=== PATIENT | male | born 1975 | race Caucasian/White ===

== ENCOUNTER 2018-12-07 05:55 | Day surgery (SDC) | payer MEDICAID ==
[~2018-12-07] VITALS: Ht 175.3 cm; Wt 136.1 kg
[~2018-12-07 05:55] MED LIST: ALBUTEROL SULF8.5 GM INH; BUTALB-APAP-CA1 EACH PO; HYDROCODON-ACE1 EAC2 PO; NEURONTIN 300300 MG PO; TOPAMAX50 MG PO; [UNRECOGNIZED DRUG - OTHER] PO
[2018-12-07 06:13] LABS: BASOPHILS 0.4 % (0-2); EOSINOPHILS 5.7 % (0-7); HEMATOCRIT 46.8 % (42.0-54.0); HEMOGLOBIN 15.5 g/dL (13.5-17.5); IMMATURE GRANULOCYTES 0.3 % (0-5); MCH 29.5 pg (26.0-34.0); MCHC 33.1 g/dL (31.0-37.0); MEAN PLATELET VOLUME 11.1 fL (7.4-10.4); NEUTROPHILS 63.6 % (40-80); RBC 5.26 10x6/uL (4.20-6.10); RDW 13.7 % (11.5-14.5); WBC 7.8 10x3/uL (4.8-10.8)
[2018-12-07 06:14] LABS: PLATELET COUNT 193 10x3/uL (130-400)
[2018-12-07 06:33] LABS: CALC OSMOLALITY 277 mosm/kg (275-300); CALCIUM 8.8 mg/dL (8.5-10.1); CARBON DIOXIDE 27.3 mmol/L (21.0-32.0); CHLORIDE - SERUM 103 mmol/L (98-107); CREATININE - SERUM 1.1 mg/dL (0.6-1.3); GLUCOSE 120 mg/dL (74-106); POTASSIUM - SERUM 4.3 mmol/L (3.5-5.1); SODIUM 139 mmol/L (136-145); UREA NITROGEN 10 mg/dL (7-18); eGFR NON AFRICAN AMERICAN 77 mL/min (90-120)
[2018-12-07 07:22] VITALS: BP 127/79; Ht 175.3 cm; Wt 136.1 kg
[2018-12-07] MEDS ORDERED: HYDROCODON-ACE1 EA10 PO (08:48)
--- NOTE | 2018-12-07 16:09 | OP ---
PATIENT NAME: NOE TAN MEDICAL RECORD: [id number] :73 LOCATION:D.OPS ADMISSION DATE: SURGEON: CARO NAVA MD DATE OF OPERATION: 12/07/2018 PREOPERATIVE DIAGNOSES: 1. Recurrent ventral hernia. 2. Chronic obstructive pulmonary disease. 3. Morbid obesity with a BMI of 46. 4. Tobacco dependence syndrome. POSTOPERATIVE DIAGNOSES: 1. Recurrent ventral hernia. 2. Chronic obstructive pulmonary disease. 3. Morbid obesity with a BMI of 46. 4. Tobacco dependence syndrome. PROCEDURE: Recurrent ventral hernia repair. SURGEON: Caro Nava MD REPORT OF PROCEDURE: The patient's abdomen was prepped and draped in sterile fashion. A cutdown was made in a semicircular fashion just below the umbilicus. Electrocautery was used to dissect through the subcutaneous tissues. We encountered a hernia defect and hernia sac. This hernia sac was transected using electrocautery and we were able to see this was a fat-containing hernia with omentum. We pushed the omentum back into the abdominal cavity. The hernia sac was excised down to the fascial edges. The hernia defect was a little over 1 cm in greatest diameter. We freed up the fascial edges above and below, and then reapproximated the fascia transversely using interrupted 0 Prolenes times 4. The wound was then irrigated out with normal saline and care was taken to assure there was no sign of any bleeding. The umbilicus and subcutaneous tissues were tacked down using interrupted 3-0 Vicryls and the skin was closed with running subcutaneous 5-0 Monocryl. A total of 10 mL of 0.25% Marcaine plain was infused into the surrounding tissues and the wound was dressed appropriately. COMPLICATIONS: None. CONDITION: Stable. ANESTHESIA: General endotracheal and local. BLOOD LOSS: Minimal. TRANSINT:[id number] Voice Confirmation ID: [id number] DOCUMENT ID: [id number] OPERATIVE REPORT [id number] NOE TAN CHRISTIAN MD at 1609 CC: TISH ROSALES [id number] DICTATION DATE: 12/07/18 0852 BALLOON ARTIST: 12/07/18 [address] [place] [address]
== END 2018-12-07 11:00 | disposition home or self-care (01) ==
LOC: D.OPS 05:55 → D.PAN 08:00 → D.OPS 08:00
PROVIDERS: ATTEND Surgery
DX: K43.2 Incisional hernia without obstruction or gangrene (principal); J44.9 Chronic obstructive pulmonary disease, unspecified; E66.01 Morbid (severe) obesity due to excess calories; Z68.42 Body mass index [BMI] 45.0-49.9, adult; F17.200 Nicotine dependence, unspecified, uncomplicated; Z01.812 Encounter for preprocedural laboratory examination

== ENCOUNTER 2019-02-25 08:05 | Inpatient (IN) | payer MEDICAID ==
[~2019-02-25] VITALS: Ht 175.3 cm; Wt 143.4 kg
--- NOTE | ~2019-02-25 | HEMODYNAMI ---
PATIENT:NOE TAN MEDICAL RECORD: [id number] : 73 [facility] AD[facility]ION DATE: 02/25/19 Generatedon:02/27/201911:58 Patient name: NOE TAN Patient #: [id number] SSN: : 1975 Date of study: 02/27/2019 Page: Of Hemodynamic Procedure Report Patient Data Patient Demographics Procedure consent was obtained First Name: NOE Gender: Male Last Name: DOMINICK : 1975 Patient #: [id number] Age: 43 year(s) Race: Unknown Additional ID: [id number] Contact details Address: [address] [place] [address] State: [place] City: [facility] Zip code: [address] Admission Admission Data Admission Date: 02/25/2019 Admission Time: 10:12 Room #: D.1207 Procedure Procedure Types Cath Procedure Peripheral Cath Diagnostic Procedure Venography Extremity Left Lower Ext. Venagram Procedure Description Procedure Date Procedure Date: 02/27/2019 Procedure Start Time: 10:40 Procedure Staff Name Function Charlie Hernandez MD Performing Physician Miguel Richards RT Monitor Nanda Ramirez RT Scrub Angelina Membreno RN Nurse Jaspal Vera CRNA Additional personnel Procedure Data Cath Procedure Fluoroscopy Diagnostic fluoroscopy Total fluoroscopy Time: 7.5 time: 7.5 min min Diagnostic fluoroscopy Total fluoroscopy dose: 357 dose: 357 mGy mGy Contrast Material Contrast Material Type Amount (ml) Isovue 300 100 Procedure Medications Medication Administration Route Dosage Heparin Flush Bag added to field 3 bags (1000units/500ml NS) Lidocaine 1% added to field 20 Heparin Bolus 3000 units Hemodynamics Rest Heart Rate: 81 (bpm) Snapshots Pre Cath Intra NCS Post Cath Vital Signs Time Heart Resp SPO2 etCO2 NIBP (mmHg) Rhythm Pain Sedation Rate (ipm) (%) (mmHg) Status Level (bpm) 10:27:06 72 24 100 30 156/70(101) NSR 0 (11) 10(A) , No pain 10:35:42 82 15 98 159/69(95) NSR 0 (11) 10(A) , No pain 10:38:13 89 14 96 24.8 173/71(102) NSR 0 (11) 10(A) , No pain 10:40:45 85 16 99 12.7 162/71(102) NSR 0 (11) 10(A) , No pain 10:43:17 88 15 99 15.7 161/68(92) NSR 0 (11) 10(A) , No pain 10:45:48 87 15 99 21 158/67(95) NSR 0 (11) 10(A) , No pain 10:48:18 89 17 99 27.8 157/68(100) NSR 0 (11) 10(A) , No pain 10:50:45 88 15 99 40.6 156/66(112) NSR 0 (11) 10(A) , No pain 10:53:17 89 17 99 26.2 164/67(105) NSR 0 (11) 10(A) , No pain 10:56:15 100 17 42 Measuring NSR 0 (11) 10(A) , No pain 10:56:54 92 22 99 39 138/67(109) NSR 0 (11) 10(A) , No pain 10:59:19 89 17 99 42 152/62(92) NSR 0 (11) 10(A) , No pain 11:01:49 89 17 99 43.6 152/67(95) NSR 0 (11) 10(A) , No pain 11:04:16 92 28 99 37.5 114/80(84) NSR 0 (11) 10(A) , No pain 11:07:14 87 17 99 42 Measuring NSR 0 (11) 10(A) , No pain 11:07:25 85 17 98 39 137/61(94) NSR 0 (11) 10(A) , No pain 11:09:50 89 17 98 41.3 149/60(90) NSR 0 (11) 10(A) , No pain 11:12:15 87 16 99 43.5 160/66(102) NSR 0 (11) 10(A) , No pain 11:14:43 86 16 99 42.8 145/66(89) NSR 0 (11) 10(A) , No pain 11:17:08 87 17 99 42.8 162/65(92) NSR 0 (11) 10(A) , No pain 11:19:36 85 15 99 44.3 159/69(92) NSR 0 (11) 10(A) , No pain 11:22:01 86 14 99 36.8 159/70(95) NSR 0 (11) 10(A) , No pain 11:24:33 86 15 99 45.1 165/70(102) NSR 0 (11) 10(A) , No pain 11:26:52 88 15 99 42.8 157/74(107) NSR 0 (11) 10(A) , No pain 11:29:17 88 20 100 48.1 159/69(102) NSR 0 (11) 10(A) , No pain 11:31:47 91 15 100 55.6 159/66(102) NSR 0 (11) 10(A) , No pain 11:34:10 93 15 100 56.4 160/70(99) NSR 0 (11) 10(A) , No pain 11:36:36 87 15 100 45.8 150/64(91) NSR 0 (11) 10(A) , No pain 11:39:05 87 18 100 42.8 148/71(101) NSR 0 (11) 10(A) , No pain 11:41:31 91 19 99 38.3 150/73(102) NSR 0 (11) 10(A) , No pain 11:43:52 90 24 100 33.8 146/73(104) NSR 0 (11) 10(A) , No pain 11:46:13 88 23 99 34.5 159/81(111) NSR 0 (11) 10(A) , No pain 11:48:41 0 163/75(104) NSR 0 (11) 10(A) , No pain 11:51:06 0 168/75(115) NSR 0 (11) 10(A) , No pain 11:53:34 0 156/77(110) NSR 0 (11) 10(A) , No pain 11:55:35 0 No Cuff NSR 0 (11) 10(A) , No pain 11:57:36 0 No Cuff NSR 0 (11) 10(A) , No pain Medications Time Medication Route Dose Verified Delivered Reason Notes Effe ctiveness by by 10:19:34 Heparin Flush added 3 Charlie Guerra used for Bag to bags Hernandez Hernandez procedure (1000units/500ml field MD JUAREZ NS) 10:19:47 Lidocaine 1% added 20ml Charlie Guerra for local to vial Hernandez Hernandez anesthetic field MD JUAREZ 11:27:00 Heparin Bolus ia 3000 Charlie Guerra units David Hernandez MD, MD Procedure Log Time Note 10:05:12 Jaspal Vera CRNA present and monitoring patient for TIVA. 10:05:28 Miguel Susie RT (R) (CV) sent for patient. Start room use. 10:05:30 Time tracking: Regular hours (M-F 7:00 - 5:00) 10:05:34 Plan of Care:Hemodynamics will remain stable., Cardiac rhythm will remain stable., Comfort level will be maintained., Respiratory function will remain adequate., Patient/ family verbilizes understanding of procedure., Procedure tolerated without complication., Recovers from procedure without complications.. 10:05:42 Patient received from Other to IR Alert and oriented. Tansferred to table in Prone position. 10:05:44 Signed procedure consent form obtained from patient. 10:05:45 Warm blankets applied, and danii hugger turned on for patient comfort. 10:05:46 Correct patient and procedure confirmed by team. 10:05:50 ECG and BP/O2 sat monitors applied to patient. 10:05:52 Full Disclosure recording started 10:05:52 - 10:06:10 SEE ANESTHESIA FOR PRE PROCEDURE ANESTHESIA 10:06:12 Pre-procedure instructions explained to patient. 10:06:13 Pre-op teaching completed and patient verbalized understanding. 10:06:15 Family in waiting room. 10:06:24 Use device set IR Diagnostic 10:06:26 Sterile Angiographic Pack opened to sterile field. 10:06:26 Tegaderm 4 x 4 (1752W) opened to sterile field. 10:06:27 Bag Decanter (2002S) opened to sterile field. 10:06:49 LEFT Popliteal region area was prepped with chlora-prep and draped in sterile fashion 10:07:14 Alarms reviewed by R. N. 10:07:15 Sharps counted by scrub and verified by R.N. 10:19:34 Heparin Flush Bag (1000units/500ml NS) 3 bags added to field was administered by Charlie Hernandez MD; used for procedure; 10:19:47 Lidocaine 1% 20ml vial added to field was administered by Charlie Hernandez MD; for local anesthetic; 10:34:21 Baseline sample Acquired. 10:34:21 Vital chart was started 10:38:12 Physician arrived 10:38:12 --------ALL STOP TIME OUT------ 10:38:13 Final Timeout: patient, procedure, and site verified with staff and physician. All members of the team are in agreement. 10:38:18 Popliteal region site verified by team. 10:38:22 Fire Safety Assessment: A--An alcohol-based skin anteseptic being used preoperatively., C--Open oxygen or nitrous oxide is being used. 10:38:27 Sedation plan: TIVA Medication:Propofol 10:40:21 2) 60-89 Mildly reduced kidney function, and other findings (as for stage 1) point to kidney disease. 10:40:27 Procedure started. 10:40:42 Local anesthetic to Left Knee with Lidocaine 1% by Charlie Hernandez MD.INITIAL ACCESS ONLY 10:41:04 DOC .035 wire (U05668) opened to sterile field. 10:41:04 PERCUTANEOUS ENTRY 19GA needle opened to sterile field. 10:41:05 SHEATH 5FR [place] (IQC868) opened to sterile field. 10:41:06 Micropuncture VSI 4FR kit opened to sterile field. 10:42:45 IV Extension Set opened to sterile field. 10:51:25 Micropuncture VSI 4FR kit opened to sterile field. 11:00:36 GLIDE WIRE ANGLE 260cm (DF6886) opened to sterile field. 11:07:38 GLIDE CATHETER 4FR Straight 65cm (CG412) opened to sterile field. 11:07:45 TORQUE DEVICE PLASTIC .038 ( TD01) opened to sterile field. 11:10:30 INFUSION CATHETER 50cm AraceliJolie (3815281) opened to sterile field . 11:16:54 SUTURE ETHILON 2-0 BLK MONO FS opened to sterile field. 11:25:17 INFUSION CATHETER 30cm Araceli-Jolie (2307947) opened to sterile field . 11:25:18 Tegaderm 6 x 8 (1628) opened to sterile field. 11:25:18 Tegaderm 6 x 8 (1628) opened to sterile field. 11:27:00 Heparin Bolus 3000 units ia was administered by Charlie Hernandez MD; ; 11:46:42 Procedure ended.(Physican Out) 11:47:26 Contrast amount:Isovue 300 100ml. 11:47:44 Fluoroscopy time 07.50 minutes. 11:47:48 Fluoroscopy dose: 357 mGy 11:47:48 Flurop Dose total: 357 11:47:52 Sharps counted by scrub and verified by R.N. 11:47:53 Insertion/operative site no bleeding no hematoma. 11:49:15 Post-op/insertion site Left Popliteal dressed using a 4 x 4 and Tegaderm. 11:49:25 Post left popliteal vein:stable 11:49:29 Post procedure instruction explained to patient.Patient verbalizes understanding. 11:49:34 Procedure and supply charges have been captured, reviewed, submitted an d are correct. 11:57:35 SEE ANESTHESIA NOTE FOR POST PROCEDURE ANESTHESIA 11:57:39 Report given to ICU. 11:57:42 Patient transfered to ICU with Bed. 11:58:07 Vital chart was stopped Device Usage Item Name Manufacture Quantity Catalog Hospital Part Current Minim al Lot# / Number Charge Number Stock Stock Serial# Code Sterile Cardinal 1 [id number] 5 Angiographic Health Pack Tegaderm 4 x 4 3M 1 1626W 346922 809041 581867 5 (1626W) Bag Decanter Microtek 1 859762 85989 641655 5 () Medical Inc. DOC .035 wire Cook Medical 1 [id number] 397917 560992 5 (J87430) PERCUTANEOUS Cook Medical 1 [id number] 295828 203796 5 [id number] ENTRY 19GA needle SHEATH 5FR Terumo 1 KIL349 542076 248934 513752 5 [place] (VOC975) Micropuncture VSI VASCULAR 2 7266V 913241 323294 5 VSI 4FR kit SOLUTIONS IV Extension Hospira 1 47744-80 466010 56300 755450 5 [id number] Set GLIDE WIRE Terumo 1 WH3387 733214 121681 384741 5 ANGLE 260cm (TO1830) GLIDE CATHETER Terumo 1 CG412 642305 870724 5 4FR Straight 65cm (CG412) TORQUE DEVICE [place] 1 TD01 505919 085250 086495 5 PLASTIC .038 ( Scientific TD01) INFUSION Medtronic 1 61900-94 351578 575527 5 CATHETER 50cm Cragg-Jolie (5928030) SUTURE ETHILON Ethicon 1 664H 652116 394075 5 2-0 BLK MONO FS INFUSION Medtronic 1 56578-91 735468 927047 5 CATHETER 30cm Cragg-Jolie (1215171) Tegaderm 6 x 8 3M 2 1628 621653 322692 5 (1628) Signature Audit [place] Stage Time Signature Unsigned Intra-Procedure 02/27/2019 Miguel 11:58:03 AM Shuffield RT (R) (CV) Signatures Monitor : Miguel Signature : Jaspreetield RT Date : Time : [address] [place] [address]
--- NOTE | ~2019-02-25 | HEMODYNAMI ---
PATIENT:NOE TAN MEDICAL RECORD: [id number] : 73 LOCATION:[facility] D.2304 ADMISSION DATE: 02/25/19 Generatedon:02/28/201911:54 Patient name: NOE TAN Patient #: [id number] SSN: : 1975 Date of study: 02/28/2019 Page: Of Hemodynamic Procedure Report Patient Data Patient Demographics Procedure consent was obtained First Name: NOE Gender: Male Last Name: DOMINICK : 1975 Patient #: [id number] Age: 43 year(s) Race: Unknown Additional ID: [id number] Contact details Address: [address] [place] [address] State: [place] City: [facility] Zip code: [address] Admission Admission Data Admission Date: 02/25/2019 Admission Time: 10:12 Room #: D.2304 Procedure Procedure Types Cath Procedure Peripheral Cath Diagnostic Procedure Miscellaneous Procedure Description Procedure Date Procedure Date: 02/28/2019 Procedure Start Time: 11:26 Procedure Staff Name Function Gurwinder Patton MD Performing Physician Jewel Hoang MD Additional personnel Miguel Richards RT Monitor Angelina Membreno RN Nurse GINNY LEMUS RT Scrub Procedure Data Cath Procedure Fluoroscopy Diagnostic fluoroscopy Total fluoroscopy Time: 2.2 time: 2.2 min min Diagnostic fluoroscopy Total fluoroscopy dose: 490 dose: 490 mGy mGy Procedure Medications Medication Administration Route Dosage Heparin Flush Bag added to field 3 bags (1000units/500ml NS) Lidocaine 1% added to field 20 Heparin Bolus I.V. 5000 units Hemodynamics Rest Heart Rate: 81 (bpm) Snapshots Pre Cath Intra NCS Post Cath Vital Signs Time Heart Resp SPO2 etCO2 NIBP (mmHg) Rhythm Pain Sedation Rate (ipm) (%) (mmHg) Status Level (bpm) 11:06:54 81 17 97 33.1 148/78(110) NSR 0 (11) 10(A) , No pain 11:11:12 77 19 96 35.4 147/76(109) NSR 0 (11) 10(A) , No pain 11:15:34 89 24 92 36.2 143/73(95) NSR 0 (11) 10(A) , No pain 11:19:55 89 20 99 38.4 147/72(92) NSR 0 (11) 10(A) , No pain 11:24:19 83 26 99 37.6 154/66(100) NSR 0 (11) 10(A) , No pain 11:29:18 76 13 97 21.8 Measuring NSR 0 (11) 10(A) , No pain 11:29:38 72 13 98 21 148/69(97) NSR 0 (11) 10(A) , No pain 11:34:37 81 15 95 0 Measuring NSR 0 (11) 10(A) , No pain 11:35:02 84 18 96 18.1 172/70(112) NSR 0 (11) 10(A) , No pain 11:39:26 85 14 97 24.8 158/74(99) NSR 0 (11) 10(A) , No pain 11:43:50 86 14 98 26.3 160/70(111) NSR 0 (11) 10(A) , No pain 11:48:10 84 15 99 10.5 155/78(102) NSR 0 (11) 10(A) , No pain 11:52:37 83 18 99 18.8 158/72(93) NSR 0 (11) 10(A) , No pain Medications Time Medication Route Dose Verified Delivered Reason Notes Effe ctiveness by by 11:32:56 Heparin Flush added 3 Gurwinder Purdy used for Bag to bags Pooja Patton procedure (1000units/500ml field MD JUAREZ NS) 11:33:42 Lidocaine 1% added 20ml Gurwinder Purdy for local to vial Pooja Patton anesthetic field MD JUAREZ 11:35:55 Heparin Bolus I.V. 5000 Gurwinder Alfaro Per units Pooja Membreno RN physician Procedure Log Time Note 10:57:31 Miguel Richards RT (R) (CV) sent for patient. Start room use. 10:57:46 Jewel Hoang MD present and monitoring patient for TIVA. 10:57:54 Time tracking: Regular hours (M-F 7:00 - 5:00) 10:57:59 Plan of Care:Hemodynamics will remain stable., Cardiac rhythm will remain stable., Comfort level will be maintained., Respiratory function will remain adequate., Patient/ family verbilizes understanding of procedure., Procedure tolerated without complication., Recovers from procedure without complications.. 10:58:03 Use device set IR Diagnostic 10:58:05 Sterile Angiographic Pack opened to sterile field. 10:58:05 Bag Decanter (2002S) opened to sterile field. 10:58:06 Tegaderm 4 x 4 (1626W) opened to sterile field. 10:58:15 Patient received from ICU to IR Alert and oriented. Tansferred to table in Prone position. 10:58:17 Signed procedure consent form obtained from patient. 10:58:19 Correct patient and procedure confirmed by team. 10:58:21 ECG and BP/O2 sat monitors applied to patient. 10:58:22 Full Disclosure recording started 10:58:23 - 10:58:41 SEE ANESTHESIA NOTE FOR PRE PROCEDURE ANESTHESIA 10:58:43 - 10:58:53 Left Knee was prepped with betadine and draped in sterile fashion. 10:58:55 Alarms reviewed by R. N. 10:58:55 Sharps counted by scrub and verified by R.N. 11:05:35 Vital chart was started 11:06:51 Baseline sample Acquired. 11:20:03 BENTSON 145cm wire (Q25054) opened to sterile field. 11:24:48 Physician arrived 11:24:48 --------ALL STOP TIME OUT------ 11:24:49 Final Timeout: patient, procedure, and site verified with staff and physician. All members of the team are in agreement. 11:24:53 Popliteal region site verified by team. 11:25:07 Fire Safety Assessment: A--An alcohol-based skin anteseptic being used preoperatively., C--Open oxygen or nitrous oxide is being used. 11:25:23 Procedure started. 11:26:45 Local anesthetic to left popliteal vein with Lidocaine 1% by Gurwinder Patton MD.INITIAL ACCESS ONLY 11:27:07 1) 90+ Normal kidney functon but urine findings or structural abnormalities or genetic trait point to kidney disease. 11:31:25 GLIDE CATHETER 5FR ANGLED 65cm (CG507) opened to sterile field. 11:32:56 Heparin Flush Bag (1000units/500ml NS) 3 bags added to field was administered by Gurwinder Patton MD; used for procedure; 11:33:42 Lidocaine 1% 20ml vial added to field was administered by Gurwinder lizama MD; for local anesthetic; 11:34:47 INFLATOR BasixTOUCH (LF6509) opened to sterile field. 11:34:48 SHEATH 6FR [place] (JFB784) opened to sterile field. 11:35:55 Heparin Bolus 5000 units I.V. was administered by Angelina Membreno RN; Per physician; 11:38:51 Inflate balloon Inflation number: 1 A Evercross 10 x 40 x 135 Balloon ([id number]) was prepped and advanced across the Undefined1 , then inflated to 8 LEIDY for 0:03 (min:sec) . 11:45:29 Procedure ended.(Physican Out) 11:46:31 Fluoroscopy time 02.20 minutes. 11:46:36 Fluoroscopy dose: 490 mGy 11:46:36 Flurop Dose total: 490 11:46:39 Sharps counted by scrub and verified by R.N. 11:46:41 Insertion/operative site no bleeding no hematoma. 11:46:47 Post-op/insertion site Left Popliteal dressed using a 4 x 4 and Tegaderm. 11:46:54 Post left popliteal vein:stable 11:50:33 Post procedure instruction explained to patient.Patient verbalizes understanding. 11:50:34 Procedure and supply charges have been captured, reviewed, submitted an d are correct. 11:53:58 Procedure and supply charges have been captured, reviewed, submitted an d are correct. 11:54:00 Report given to ICU. 11:54:03 Patient transfered to ICU with Bed. 11:54:31 Vital chart was stopped Intervention Summary Intervention Notes Time ActionType Lesion and Equipment Used Action# Pressure Duration Attributes 11:38:51 Inflate Undefined1 Evercross 10 x 1 8 00:03 balloon 40 x 135 Balloon ([id number]) Device Usage Item Name Manufacture Quantity Catalog Number Hospital Part Current M inimal Lot# / Charge Number Stock Stock Serial# Code Sterile Cardinal 1 [id number] 785543 5 Angiographic Health Pack Bag Decanter Microtek 1 2001S 275401 30151 631503 5 (2001S) Medical Inc. Tegaderm 4 x 4 3M 1 1626W 378907 194143 748650 5 (1626W) BENTSON 145cm Cook Medical 1 [id number] 821081 571678 5 wire (V77262) GLIDE CATHETER Terumo 1 CG507 572955 507684 5 5FR ANGLED 65cm (CG507) INFLATOR Merit 1 AH2010 611568 269617 767226 5 BasixTOVicampo Medical (XO3854) SHEATH 6FR Terumo 1 KIH436 831399 475770 318161 4 0 [place] (XKM546) Evercross 10 x Medtronic 1 [id number] 616886 157906 147353 5 40 x 135 Balloon ([id number]) Signature Audit [place] Stage Time Signature Unsigned Intra-Procedure 02/28/2019 Miguel 11:54:24 AM Susie RT (R) (CV) Signatures Monitor : Miguel Signature : Susie RT Date : Time : [facility] [address] [place] [id number]
[~2019-02-25 08:05] MED LIST changes: +HYDROCODON-ACE1 EA10 PO
[2019-02-25 08:44] LABS: BASOPHILS 0.2 % (0-2); EOSINOPHILS 1.9 % (0-7); HEMATOCRIT 43.6 % (42.0-54.0); HEMOGLOBIN 14.6 g/dL (13.5-17.5); IMMATURE GRANULOCYTES 0.2 % (0-5); LYMPHOCYTES 18.8 % (15-50); MCHC 33.5 g/dL (31.0-37.0); MCV 89.5 fL (80.0-100.0); MEAN PLATELET VOLUME 11.4 fL (7.4-10.4); NEUTROPHILS 72.9 % (40-80); RBC 4.87 10x6/uL (4.20-6.10); RDW 15.3 % (11.5-14.5); WBC 8.8 10x3/uL (4.8-10.8)
[2019-02-25 08:45] LABS: PLATELET COUNT 131 10x3/uL (130-400)
[2019-02-25 08:51] LABS: INR 1.14 (0.85-1.17); PROTIME 14.1 SECONDS (11.6-15.0)
[2019-02-25 08:59] LABS: ALBUMIN 3.5 g/dL (3.4-5.0); ALKALINE PHOSPHATASE 132 U/L (46-116); ALT (SGPT) 26 U/L (10-68); BILIRUBIN - TOTAL 0.33 mg/dL (0.2-1.3); CALC OSMOLALITY 271 mosm/kg (275-300); CALCIUM 8.5 mg/dL (8.5-10.1); CARBON DIOXIDE 23.7 mmol/L (21.0-32.0); CHLORIDE - SERUM 102 mmol/L (98-107); GLUCOSE 119 mg/dL (74-106); POTASSIUM - SERUM 4.5 mmol/L (3.5-5.1); PROTEIN - SERUM 7.2 g/dL (6.4-8.2); SODIUM 135 mmol/L (136-145); UREA NITROGEN 15 mg/dL (7-18); eGFR NON AFRICAN AMERICAN 86 mL/min (90-120)
[2019-02-25 11:33] VITALS: BMI 44.5
--- NOTE | 2019-02-25 11:50 | NUR ---
NEW PATIENT ADMIT FROM ER. ARRIVED VIA WC ACCOMPANIED BY HOSPITAL STAFF. PATIENT APPEARS IN NO ACUTE DISTRESS. IV TO RT AC SL. NO REDNESS OR EDEMA NOTED. ANGÉLICA LUNG SOUNDS CLEAR. VSS. LLE EDEMATOUS PINK IN COLOR WITH LESS THAN 3 SECOND CAPILLARY REFILL. RLE WNL. PATIENT HAS NO SKIN BREAKDOWN HAS MULTIPLE TATTOOS TO TRUNK AND ALL EXTREMITIES. PATIENT ORIENTED TO ROOM AND CALL LIGHT LIGHT. OFFERED BATH BUT PATIENT REFUSED.
--- NOTE | 2019-02-25 13:40 | NUR ---
PATIENT RESTING COMFORTABLY. GAVE ADDITIONAL CUP OF COFFEE. WILL CONTINUE TO MONITOR.
--- NOTE | 2019-02-25 14:44 | NUR ---
PATIENT COMPLAINS OF PAIN AT AN "8" TO LLE. MEDICATED NPER MAR WITH MORPHONE 4M IV. PATIENT TOLERATED WELL. GAVE PATIENT CUP0 OF COFFEE. WILL CONTINUE TO MONITOR. SR UP X 2 BED IN LOW POSITION AND CALL LIGHT IN REACH.
--- NOTE | 2019-02-25 15:27 | NUR ---
DR ESPARZA IN ROOM. NEW ORDERS RECEIVED.,
[2019-02-25 19:42] VITALS: BP 125/65
--- NOTE | 2019-02-25 19:46 | NUR ---
PATIENT RECEIVED SITTING UP IN BED. ASSESSMENT & VITAL SIGNS DONE. NO C/O PAIN OR DISTRESS. BED LOW. CALL LIGHT WITHIN REACH. WILL CONTINUE TO MONITOR.
--- NOTE | 2019-02-25 21:30 | NUR ---
PATIENT ASSIST INTO SHOWER. PATIENT SHOWER SUPPLIES OUTSIDE OF SHOWER ON CHAIR. PATIENT BED LINENS CHANGED. PATIENT CLEAN DRY, NEW GOWN ON. PATIENT STATES "I FEEL MUCH BETTER. PATIENT ASSIST TO BED. CALL LIGHT WITHIN REACH. WILL CONTINUE TO MONITOR.
[2019-02-25 23:54] VITALS: BP 116/73
[2019-02-26 04:19] VITALS: BP 109/78
[2019-02-26 07:25] LABS: BASOPHILS 0.3 % (0-2); EOSINOPHILS 2.1 % (0-7); HEMATOCRIT 41.5 % (42.0-54.0); HEMOGLOBIN 13.6 g/dL (13.5-17.5); IMMATURE GRANULOCYTES 0.4 % (0-5); LYMPHOCYTES 19.7 % (15-50); MCH 29.4 pg (26.0-34.0); MCHC 32.8 g/dL (31.0-37.0); MCV 89.8 fL (80.0-100.0); MEAN PLATELET VOLUME 12.2 fL (7.4-10.4); MONOCYTES 7.3 % (2-11); NEUTROPHILS 70.2 % (40-80); PLATELET COUNT 141 10x3/uL (130-400); RBC 4.62 10x6/uL (4.20-6.10); RDW 15.2 % (11.5-14.5); WBC 7.7 10x3/uL (4.8-10.8)
[2019-02-26 07:28] LABS: CALC OSMOLALITY 276 mosm/kg (275-300); CALCIUM 8.5 mg/dL (8.5-10.1); CARBON DIOXIDE 24.6 mmol/L (21.0-32.0); CHLORIDE - SERUM 103 mmol/L (98-107); GLUCOSE 133 mg/dL (74-106); SODIUM 137 mmol/L (136-145); UREA NITROGEN 14 mg/dL (7-18); eGFR NON AFRICAN AMERICAN 86 mL/min (90-120)
--- NOTE | 2019-02-26 07:30 | NUR ---
PT RESTING IN BED, SHIFT ASSESSMENT PERFORMED, DENIES ANY FURTHER NEEDS AT THIS TIME. WILL CONT TO FOLLOW POC
[2019-02-26] MEDS ORDERED: VALIUM 2 MG TAB2 MG PO (08:27)
[2019-02-26 08:29] VITALS: BP 102/62
[2019-02-26 11:35] VITALS: BP 129/87
[2019-02-26 14:15] VITALS: BMI 44.4
--- NOTE | 2019-02-26 19:30 | NUR ---
PT ALERT AND ORIENTED WITH HOB UPRIGHT AND ELEVATED. PT HAS LEFT AC IV THAT IS SALINE LOCKED. LEFT LOWER EXTREMETY IS TENDER UPON TOUCH. WARM AND RED TO THE ENTIRE LIMB. STATES "PAIN IS ALWAYS A 9 OR 10". DENIES FURTHER ISSUES. HAS CALL LIGHT IN REACH.
[2019-02-26 20:00] VITALS: BP 115/62
--- NOTE | 2019-02-26 23:19 | NUR ---
I have reviewed this patient and I concur with the Shift Assessment completed by the Licensed Practical Nurse today this shift.
[2019-02-27] VITALS (15 sets, daily range): BP systolic 104–150; BP diastolic 70–103; Ht 175.3 cm; Wt 143.4 kg
[2019-02-27 06:42] LABS: INR 1.15 (0.85-1.17); PROTIME 14.2 SECONDS (11.6-15.0)
[2019-02-27 07:09] LABS: ALBUMIN 3.3 g/dL (3.4-5.0); ALKALINE PHOSPHATASE 126 U/L (46-116); ALT (SGPT) 29 U/L (10-68); BILIRUBIN - TOTAL 0.36 mg/dL (0.2-1.3); CALCIUM 8.5 mg/dL (8.5-10.1); CREATININE - SERUM 1.1 mg/dL (0.6-1.3); GLUCOSE 121 mg/dL (74-106); PROTEIN - SERUM 7.5 g/dL (6.4-8.2); UREA NITROGEN 13 mg/dL (7-18); eGFR NON AFRICAN AMERICAN 77 mL/min (90-120)
--- NOTE | 2019-02-27 07:17 | NUR ---
PT RESTING IN BED, DENIES ANY NEEDS AT THIS TIME, WILL CONT TO FOLLOW POC
[2019-02-27 07:32] LABS: BASOPHILS 0.3 % (0-2); EOSINOPHILS 2.7 % (0-7); HEMOGLOBIN 13.7 g/dL (13.5-17.5); IMMATURE GRANULOCYTES 0.6 % (0-5); LYMPHOCYTES 19.2 % (15-50); MCH 29.2 pg (26.0-34.0); MCHC 32.6 g/dL (31.0-37.0); MCV 89.6 fL (80.0-100.0); MONOCYTES 7.5 % (2-11); NEUTROPHILS 69.7 % (40-80); PLATELET COUNT 143 10x3/uL (130-400); RBC 4.69 10x6/uL (4.20-6.10); WBC 6.9 10x3/uL (4.8-10.8)
[2019-02-27 08:05] LABS: CALC OSMOLALITY 274 mosm/kg (275-300); CHLORIDE - SERUM 100 mmol/L (98-107); POTASSIUM - SERUM 4.2 mmol/L (3.5-5.1); SODIUM 137 mmol/L (136-145)
--- NOTE | 2019-02-27 09:20 | NUR ---
IVR CALLED TO PREOP PT. PT PREOP ORDERED
--- NOTE | 2019-02-27 10:15 | NUR ---
PT LEFT WITH IVR
--- NOTE | 2019-02-27 12:10 | NUR ---
RECEIVED PATIENT FROM IR RECOVERY POST SHEATH INSERTION TO LEFT LEG WITH TPA INFUSING AT 20ML/HR AND HEPARIN INFUSING AT 5ML/HR. LEFT LEG IS SWOLLEN AND RED. PATIENT COMPLAINT OF SEVERE HEAD ACHE PROBABLY FROM KETAMINE WEARING OFF. LABOR ARBITRATOR HEARING OFFICE ADMINISTERED NORCO. GAVE COLD WET RAGS FOR PATIENTS FOREHEAD PER REQUEST. WILL KEEP PATIENT LAYING FLAT TILL SHEAT IS REMOVED. VSS. PATIENT AWAKE ALERT AND ORIENTED.
[2019-02-27 13:11] LABS: HEMATOCRIT 40.2 % (42.0-54.0); HEMOGLOBIN 13.2 g/dL (13.5-17.5); MCH 29.3 pg (26.0-34.0); MCHC 32.8 g/dL (31.0-37.0); MCV 89.1 fL (80.0-100.0); MEAN PLATELET VOLUME 11.3 fL (7.4-10.4); NEUTROPHILS 73.7 % (40-80); PLATELET COUNT 131 10x3/uL (130-400); RBC 4.51 10x6/uL (4.20-6.10); RDW 14.3 % (11.5-14.5); WBC 5.9 10x3/uL (4.8-10.8)
[2019-02-27 13:25] LABS: INR 1.1 (0.85-1.17); PROTIME 13.7 SECONDS (11.6-15.0)
[2019-02-27 13:26] LABS: APTT 36.9 SECONDS (22.8-39.4)
--- NOTE | 2019-02-27 14:00 | NUR ---
PATIENT RESTING IN BED C VSS. NO COMPLAINTS.
--- NOTE | 2019-02-27 17:46 | MORECARE ---
CASE MANAGEMENT DISCHARGE SUMMARY PATIENT: NOE TAN UNIT: [id number] ADM DATE: 02/25/19 AGE: 43 : [birth year] SEX: M ROOM/BED: D.2304 AUTHOR: JOHNNY,DOC PHYSICIAN: REFERRING PHYSICIAN: CHRISTIAN ESPARZA MD DATE OF SERVICE: 02/27/19 Discharge Plan Patient Name: NOE TAN Facility: [facility]:[place] : 1975 Planned Disposition: Home or Self Care Anticipated Discharge Date: Discharge Date: Expected LOS: Initial Reviewer: [email or web address] Initial Review Date: 02/25/2019 Generated: 02/27/19 6:46 pm Comments DCP- Discharge Planning Updated by [email or web address]: Veronika Subramanian on 02/27/19 4:[address] Patient Name: NOE TAN Admission Status: ER Accout number: [id number] Admission Date: 02-25-2019 : 1975 Admission Diagnosis: Attending: CHRISTIAN ESPARZA Current LOS: 2 Anticipated DC Date: Planned Disposition: Home or Self Care Primary Insurance: [place] [employer] EST[employer] Discharge Planning Comments: CM met with patient at bedside after explaining CM role and obtaining verbal consent. Patient lives at home with his family and plans to return there upon discharge. Patient feels this would be a safe discharge. CM discussed availability / needs of home health and medical equipment. Patient denies any discharge needs at this time. Patient states he will have his family drive him home upon discharge. CM will continue to follow and assist as needed with discharge planning / needs. Plumbing And Heating Mechanic: Veronika Subramanian DCPIA - Discharge Planning Initial Assessment Updated by [email or web address]: Veronika Subramanian on 02/27/19 5:42 pm * Is the patient Alert and Oriented? Yes * How many steps to enter\exit or inside your home? * PCP Jasper Salinas APN * [facility] * Preadmission Environment Home with Family * ADLs Independent * List name and contact numbers for known caregivers / representatives who currently or will assist patient after discharge: Carolin Tan - formerly [facility] - [phone] * Verbal permission to speak to the caregivers and representatives has been obtained from the patient. Yes * Community resources currently utilized None * Additional services required to return to the preadmission environment? No * Can the patient safely return to the preadmission environment? Yes * Has this patient been hospitalized within the prior 30 days at any hospital? No Patient Name: NOE TAN Page [id number] at 1746 All edits/amendments must be made on the electronic document DICTATION DATE: 02/27/191744 DECORATOR LIGHTING FIXTURES: DANIEL 02/27/191744 RPT#: [id number] DC DATE: STATUS: ADM IN [facility] [address] [place] [address] END OF REPORT
[2019-02-27 18:14] LABS: BASOPHILS 0.3 % (0-2); EOSINOPHILS 2.3 % (0-7); HEMATOCRIT 43.3 % (42.0-54.0); HEMOGLOBIN 14.1 g/dL (13.5-17.5); IMMATURE GRANULOCYTES 0.7 % (0-5); LYMPHOCYTES 15.8 % (15-50); MCH 29.6 pg (26.0-34.0); MCHC 32.6 g/dL (31.0-37.0); MCV 90.8 fL (80.0-100.0); MEAN PLATELET VOLUME 11.3 fL (7.4-10.4); NEUTROPHILS 73.9 % (40-80); PLATELET COUNT 138 10x3/uL (130-400); RBC 4.77 10x6/uL (4.20-6.10); RDW 14.9 % (11.5-14.5)
[2019-02-27 18:24] LABS: INR 1.08 (0.85-1.17); PROTIME 13.5 SECONDS (11.6-15.0)
[2019-02-27 18:25] LABS: APTT 30.3 SECONDS (22.8-39.4)
--- NOTE | 2019-02-27 19:00 | NUR ---
BEDSIDE REPORT AND SHIFT ASSESSMENT COMPLETE. PT STATES PAIN MEDS ARE STARTING TO WORK, REPORTS PAIN 4/10. L HAND PIV SALINE LOCKED, DRESSING CDI. LLE IR SHEATH DRESSING CDI. LLE PULSES PALP AND DOPPLERED. DENIES NEEDS AT THIS TIME.
--- NOTE | 2019-02-27 21:00 | NUR ---
C/O PAIN 04/10, MEDS GIVEN PER SEP. 100% OF TURKEY SANDWICH EATEN. VSS, WILL CONTINUE TO MONITOR.
--- NOTE | 2019-02-27 21:40 | NUR ---
Patient c/o excrutiating L thigh pain 05/10, spoke to Stanislaw JULIO with new orders received. 1mg Dilaudid IV / 2mg Valium PO to be given now, medications given as ordered and will continue to monitor.
--- NOTE | 2019-02-27 23:00 | NUR ---
REASESSMENT COMPLETE, VSS. LLE SHEATH DRESSING CDI. MEDS GIVEN PER SEP. CALL LIGHT IN REACH, WILL CONTINUE TO MONITOR.
[2019-02-27 23:20] LABS: BASOPHILS 0.2 % (0-2); EOSINOPHILS 1.5 % (0-7); HEMATOCRIT 42.8 % (42.0-54.0); HEMOGLOBIN 14.4 g/dL (13.5-17.5); IMMATURE GRANULOCYTES 0.6 % (0-5); MCH 29.9 pg (26.0-34.0); MCHC 33.6 g/dL (31.0-37.0); MEAN PLATELET VOLUME 11.3 fL (7.4-10.4); NEUTROPHILS 81.7 % (40-80); PLATELET COUNT 139 10x3/uL (130-400); RBC 4.82 10x6/uL (4.20-6.10); RDW 14.9 % (11.5-14.5)
[2019-02-27 23:23] LABS: MCV 88.8 fL (80.0-100.0); WBC 9.9 10x3/uL (4.8-10.8)
[2019-02-27 23:32] LABS: APTT 35.5 SECONDS (22.8-39.4); INR 1.17 (0.85-1.17); PROTIME 14.4 SECONDS (11.6-15.0)
[2019-02-28] VITALS (19 sets, daily range): BP systolic 113–151; BP diastolic 73–88
--- NOTE | 2019-02-28 01:00 | NUR ---
PT SLEEPING, VSS, NO SIGNS OF ACUTE DISTRESS. WILL CONTINUE TO MONITOR.
--- NOTE | 2019-02-28 03:00 | NUR ---
REASESSMENT COMPLETE, VSS. PT SLEEPING. O2 SAT 98 ON 2L NC. LLE PULSES DOPPLERED. WILL CONTINUE TO MONITOR.
--- NOTE | 2019-02-28 05:00 | NUR ---
CHG BATH, LINEN CHANGE COMPLETE. VSS, NO SIGNS OF ACUTE DISTRESS NOTED. CALL LIGHT IN REACH, DENIES ANY NEEDS AT THIS TIME.
[2019-02-28 06:01] LABS: BASOPHILS 0.3 % (0-2); EOSINOPHILS 1.7 % (0-7); HEMATOCRIT 41.5 % (42.0-54.0); HEMOGLOBIN 13.8 g/dL (13.5-17.5); IMMATURE GRANULOCYTES 0.8 % (0-5); LYMPHOCYTES 10.4 % (15-50); MCH 29.6 pg (26.0-34.0); MCHC 33.3 g/dL (31.0-37.0); MCV 88.9 fL (80.0-100.0); MONOCYTES 10.4 % (2-11); NEUTROPHILS 76.4 % (40-80); PLATELET COUNT 119 10x3/uL (130-400); RBC 4.67 10x6/uL (4.20-6.10); RDW 15.1 % (11.5-14.5)
[2019-02-28 06:25] LABS: WBC 7.2 10x3/uL (4.8-10.8)
[2019-02-28 06:36] LABS: ALBUMIN 3.1 g/dL (3.4-5.0); ALKALINE PHOSPHATASE 113 U/L (46-116); ALT (SGPT) 30 U/L (10-68); BILIRUBIN - TOTAL 0.35 mg/dL (0.2-1.3); CALC OSMOLALITY 278 mosm/kg (275-300); CALCIUM 8.4 mg/dL (8.5-10.1); CARBON DIOXIDE 27.1 mmol/L (21.0-32.0); CHLORIDE - SERUM 104 mmol/L (98-107); CREATININE - SERUM 0.9 mg/dL (0.6-1.3); GLUCOSE 134 mg/dL (74-106); POTASSIUM - SERUM 4.4 mmol/L (3.5-5.1); PROTEIN - SERUM 7.1 g/dL (6.4-8.2); SODIUM 139 mmol/L (136-145); UREA NITROGEN 11 mg/dL (7-18); eGFR NON AFRICAN AMERICAN > 90 mL/min (90-120)
[2019-02-28 07:09] LABS: APTT 42.3 SECONDS (22.8-39.4); INR 1.32 (0.85-1.17); PROTIME 15.8 SECONDS (11.6-15.0)
--- NOTE | 2019-02-28 10:35 | NUR ---
gary called from [facility] preop patient if any preop med orders. pt has no preop medications ordered.
--- NOTE | 2019-02-28 10:55 | NUR ---
[facility] staff here to transport patient. now off unit
--- NOTE | 2019-02-28 12:04 | NUR ---
PT RETURNED TO ROOM FROM [facility] PLACED BACK ON BEDSIDE MONITORING. SHEATH REMOVED FROM LEFT LOWER LEG. PT INSTRUCTED TO KEEP LEG STRAIGHT. LONG NO COMPLICATIONS OK TO GO TO FLOOR AFTER REST IS UP
--- NOTE | 2019-02-28 12:20 | NUR ---
DR RICE CALLED. CAN GIVE ELIQUIS AT 1400 AFTER BEDREST COMPLETED. DO NOT HOLD PM DOSING.
--- NOTE | 2019-02-28 19:39 | NUR ---
REPORT CALLED TO SHEELA ON [facility].
--- NOTE | 2019-02-28 19:53 | NUR ---
PT OFF UNIT
--- NOTE | 2019-02-28 20:19 | NUR ---
PT ARRIVED TO FLOOR AT THIS TIME. ACCOMPANIED BY ICU STAFF
--- NOTE | 2019-02-28 23:25 | NUR ---
PIV TO RIGHT AC DC'D, UNABLE TO FLUSH. CATHETER TIP INTACT, NO S/S OF INFILTRATION, PT TOLERATED WELL. BED IN LOWEST POSITION, SR X2, CALL LIGHT AND CELLPHONE WITHIN REACH. WILL CONTINUE TO MONITOR.
[2019-03-01] VITALS: BP 113/79
[2019-03-01 04:00] VITALS: BP 105/68
[2019-03-01 06:12] LABS: BASOPHILS 0.2 % (0-2); EOSINOPHILS 2.6 % (0-7); HEMATOCRIT 39.8 % (42.0-54.0); HEMOGLOBIN 12.9 g/dL (13.5-17.5); IMMATURE GRANULOCYTES 0.8 % (0-5); LYMPHOCYTES 16.4 % (15-50); MCHC 32.4 g/dL (31.0-37.0); MCV 89.4 fL (80.0-100.0); MEAN PLATELET VOLUME 11.9 fL (7.4-10.4); MONOCYTES 7.8 % (2-11); NEUTROPHILS 72.2 % (40-80); PLATELET COUNT 131 10x3/uL (130-400); RBC 4.45 10x6/uL (4.20-6.10); WBC 6.5 10x3/uL (4.8-10.8)
[2019-03-01 06:54] LABS: ALBUMIN 2.9 g/dL (3.4-5.0); ALKALINE PHOSPHATASE 108 U/L (46-116); BILIRUBIN - TOTAL 0.17 mg/dL (0.2-1.3); CALCIUM 8.2 mg/dL (8.5-10.1); CARBON DIOXIDE 22.3 mmol/L (21.0-32.0); CHLORIDE - SERUM 104 mmol/L (98-107); GLUCOSE 146 mg/dL (74-106); PROTEIN - SERUM 6.7 g/dL (6.4-8.2); SODIUM 137 mmol/L (136-145); eGFR NON AFRICAN AMERICAN 86 mL/min (90-120)
[2019-03-01 06:55] LABS: ALT (SGPT) 22 U/L (10-68); CALC OSMOLALITY 277 mosm/kg (275-300); UREA NITROGEN 15 mg/dL (7-18)
--- NOTE | 2019-03-01 07:10 | NUR ---
REPORT RECIEVED FROM AUTO WASH BUFFER AND PATIENT CARE ASSUMED. PATIENT SITTING UP IN BED WATCHING TV. PATIENT IS AWAKE, ALERT AND ORIENTED X 4. PATIENT IS STABLE AND VSS. PATIENT DENIES ANY NEEDS OR PAIN. WILL CONTINUE WITH PLAN OF CARE. SR UP X 2 BED IN LOW POSITION AND CALL LIGHT IN REACH.
[2019-03-01 08:00] VITALS: BP 110/59
[2019-03-01 12:00] VITALS: BP 122/89
--- NOTE | 2019-03-01 14:38 | NUR ---
PATIENT SITTING UP IN BED VISITING WITH FRIEND. PATIENT IS STABLE AND UMCHANGED. PATIENT DENIES ANY NEEDS OR PAIN. WILL CONTINUE TO MONITOR. SR UP X 2 BED IN LOW POSITION AND CALL LIGHT IN REACH.
[2019-03-01 17:09] VITALS: BP 119/61
--- NOTE | 2019-03-01 19:25 | NUR ---
AT NURSES STATION CURSING BECAUSE HE STATES HIS PAIN MED IS 30 MINUTES PAST DUE. STAFF STILL IN REPORT BUT MEDICATED AT THIS TIME. ALERT AND ORIENTED X4. AGITATED THEN APOLOGIZED TO STAFF FOR BEING RUDE. 2+ EDEMA NOTED TO LLE AND IS RED. DRSG NOTED TO POSTERIOR POPLITEAL/CALF AREA. AMBULATORY. RATES PAIN 10 IN LLE. SALINE LOCK NOTED TO LT HAND. RESP IRREG. SOB WTIH EXERTION. CL IN REACH.
[2019-03-01 20:13] VITALS: BP 152/71
--- NOTE | 2019-03-01 21:35 | NUR ---
MEDICATED WITH DILAUDID FOR C/O PAIN IN LLE. CL IN REACH.
--- NOTE | 2019-03-01 23:35 | NUR ---
MEDICATED WITH DILAUDID FOR C/O PAIN IN LLE. CL IN REACH. PT WAITING ON PIZZA TO BE DELIVERED AND TALKING ON PHONE.
[2019-03-02 00:17] VITALS: BP 123/83
--- NOTE | 2019-03-02 01:38 | NUR ---
LYING IN BED. C/O PAIN IN LLE. MEDICATED WITH DILAUDID ORDERED. CL IN REACH. LLE ELEVATED ON PILLOW.
[2019-03-02 03:07] LABS: FACTOR II DNA ANALYSIS Negative (())
--- NOTE | 2019-03-02 04:23 | NUR ---
MEDICATED WITH DILAUDID FOR C/O PAIN IN LLE.
[2019-03-02 04:36] VITALS: BP 123/79
[2019-03-02 07:16] VITALS: BP 115/73
[2019-03-02 07:27] LABS: ALKALINE PHOSPHATASE 116 U/L (46-116); ALT (SGPT) 24 U/L (10-68); BILIRUBIN - TOTAL 0.17 mg/dL (0.2-1.3); CALC OSMOLALITY 281 mosm/kg (275-300); CALCIUM 8.2 mg/dL (8.5-10.1); CARBON DIOXIDE 24.6 mmol/L (21.0-32.0); CHLORIDE - SERUM 105 mmol/L (98-107); GLUCOSE 155 mg/dL (74-106); POTASSIUM - SERUM 3.6 mmol/L (3.5-5.1); PROTEIN - SERUM 6.7 g/dL (6.4-8.2); SODIUM 139 mmol/L (136-145); UREA NITROGEN 16 mg/dL (7-18); eGFR NON AFRICAN AMERICAN 86 mL/min (90-120)
--- NOTE | 2019-03-02 07:30 | NUR ---
PT SITTING ON SIDE OF BED, C/O PAIN TO LLE. ADVISED PT THAT IT IS TOO EARLY FOR HMP. PT VERBALIZES UNDERSTANDING. SHIFT ASSESSMENT PERFORMED. WILL CONT TO FOLLOW POC
[2019-03-02 07:31] LABS: BASOPHILS 0.6 % (0-2); HEMATOCRIT 36.7 % (42.0-54.0); HEMOGLOBIN 12.3 g/dL (13.5-17.5); IMMATURE GRANULOCYTES 0.9 % (0-5); LYMPHOCYTES 16.9 % (15-50); MCH 29.4 pg (26.0-34.0); MCHC 33.5 g/dL (31.0-37.0); MCV 87.8 fL (80.0-100.0); MEAN PLATELET VOLUME 11.5 fL (7.4-10.4); MONOCYTES 8.5 % (2-11); NEUTROPHILS 70.1 % (40-80); RBC 4.18 10x6/uL (4.20-6.10); WBC 6.6 10x3/uL (4.8-10.8)
[2019-03-02 07:50] LABS: PLATELET COUNT 158 10x3/uL (130-400)
[2019-03-02] MEDS ORDERED: ELIQUIS5 MG PO (11:10)
[2019-03-02] MEDS ORDERED: PROTONIX40 MG PO (11:11)
--- NOTE | 2019-03-02 12:25 | NUR ---
DISCHARGE INSTRUCTIONS REVIEWED WITH PT AMD ALL QUESTIONS ANSWERED. PIV REMOVED WITH CATHETER TIP INTACT. ASSISTED PT TO FRONT OF HOSPITAL VIA WHEELCHAIR, WHERE PT LEFT WITH FAMILY.
== END 2019-03-02 12:27 | disposition home or self-care (01) | DRG 253 ==
LOC: D.ER 08:05 → D.ICU 10:12 → D.M3 10:12 → D.ICU 02-27 12:11 → D.M3 02-28 20:12
PROVIDERS: Family Medicine; Internal Medicine Hematology & Oncology; Specialist; ADMIT Internal Medicine Nephrology; ATTEND Internal Medicine Nephrology
PROC: 3E03317 Introduction of Other Thrombolytic into Peripheral Vein, Percutaneous Approach (ICD-10-PCS; 2019-02-27)
PROC: B51C1ZZ Fluoroscopy of Left Lower Extremity Veins using Low Osmolar Contrast (ICD-10-PCS; principal; 2019-02-27 10:15)
PROC: 047J3ZZ Dilation of Left External Iliac Artery, Percutaneous Approach (ICD-10-PCS; 2019-02-28)
PROC: 047L3ZZ Dilation of Left Femoral Artery, Percutaneous Approach (ICD-10-PCS; 2019-02-28)
DX: I82.402 Acute embolism and thrombosis of unspecified deep veins of left lower extremity (principal); F17.203 Nicotine dependence unspecified, with withdrawal; E87.1 Hypo-osmolality and hyponatremia; Z68.41 Body mass index [BMI] 40.0-44.9, adult; G62.9 Polyneuropathy, unspecified; G40.909 Epilepsy, unspecified, not intractable, without status epilepticus; G43.909 Migraine, unspecified, not intractable, without status migrainosus; J44.9 Chronic obstructive pulmonary disease, unspecified; R05 Cough; K21.9 Gastro-esophageal reflux disease without esophagitis; E66.01 Morbid (severe) obesity due to excess calories; G89.29 Other chronic pain; M19.90 Unspecified osteoarthritis, unspecified site

== ENCOUNTER → 2020-03-05 11:09 | Outpatient (CLI) | payer MEDICAID ==
[2019-02-27 16:33] VITALS: BMI 44.5
[~2020-03-05 11:09] MED LIST changes: +ELIQUIS5 MG PO; +PROTONIX40 MG PO; +VALIUM 2 MG TAB2 MG PO
[2020-03-05 11:56] LABS: BASOPHILS 0.6 % (0-2); HEMOGLOBIN 13.4 g/dL (13.5-17.5); IMMATURE GRANULOCYTES 0.6 % (0-5); MCH 29.9 pg (26.0-34.0); MCHC 31.2 g/dL (31.0-37.0); MEAN PLATELET VOLUME 11.5 fL (7.4-10.4); MONOCYTES 8.1 % (2-11); NEUTROPHILS 63.7 % (40-80); RBC 4.48 10x6/uL (4.20-6.10); RDW 14.5 % (11.5-14.5); WBC 7.2 10x3/uL (4.8-10.8)
[2020-03-05 12:00] LABS: PLATELET COUNT 204 10x3/uL (130-400)
[2020-03-05 12:10] LABS: ALBUMIN 3.4 g/dL (3.4-5.0); ALKALINE PHOSPHATASE 133 U/L (30-120); ALT (SGPT) 25 U/L (10-68); BILIRUBIN - TOTAL 0.18 mg/dL (0.2-1.3); CALC OSMOLALITY 277 mosm/kg (275-300); CALCIUM 8.7 mg/dL (8.5-10.1); CARBON DIOXIDE 27.3 mmol/L (21.0-32.0); CHLORIDE - SERUM 105 mmol/L (98-107); CREATININE - SERUM 1.1 mg/dL (0.6-1.3); GLUCOSE 126 mg/dL (74-106); POTASSIUM - SERUM 4.4 mmol/L (3.5-5.1); PROTEIN - SERUM 7.3 g/dL (6.4-8.2); SODIUM 138 mmol/L (136-145); UREA NITROGEN 12 mg/dL (7-18); eGFR NON AFRICAN AMERICAN 77 mL/min (90-120)
== END | disposition home or self-care (01) ==
LOC: D.LAB 11:09
PROVIDERS: ATTEND Psychiatry & Neurology Neurology
DX: R56.9 Unspecified convulsions (principal)

== ENCOUNTER → 2020-03-18 12:30 | Outpatient (CLI) | payer MEDICAID ==
[2019-02-27 16:33] VITALS: BMI 44.5
--- NOTE | ~2020-03-18 | EEG ---
PATIENT:NOE TAN MEDICAL RECORD: [id number] DATE OF : [birth year] LOCATION: [facility] ADMISSION DATE: 03/18/20 REFERRING PHYSICIAN: INTERPRETING PHYSICIAN: MICK ROBINS MD DATE OF SERVICE: 03/18/2020 This is an outpatient recording done on 03/18/[address] Robins. CASE HISTORY: Lifelong seizure history with the patient reporting last seizure 1 month prior to study with aura of dizziness, headache and feeling different with spacing out and total body jerking after which the patient is quite fatigued and needs to sleep for 1-2 days. MEDICATIONS: Valium and topiramate. OTHER ASSOCIATED HISTORY: Migraine headache. PROCEDURE: EEG done as a routine outpatient laboratory recording using the standard 10-20 international electrode system. A 16-channels used with 17th as EKG. Photic stimulation done as activation procedures. DESCRIPTION: EEG opens with the patient awake with the record displaying a fairly well organized low amplitude record of 11-12 Hz. There is prominent beta artifact secondary to medication and prominent EMG motor artifact obscuring portions of the background. No epileptiform change such as spike, polyspike, or spike and wave was seen. Infrequent to occasional bilateral independent single theta slow waves were seen, some sharp contour, left more prominent than the right and infrequent complexes of slows or sharps and slows were seen with shifting predominance. Photic stimulation did not yield a significant driving response. There was a photomyogenic or photoparoxysmal response seen. IMPRESSION: Mild to moderately abnormal EEG with nonspecific changes of slows and sharps suggesting mild to moderate cortical dysfunction. No evidence of an active seizure focus was appreciated on this EEG recording. TRANSINT:[id number] Voice Confirmation ID: [id number] DOCUMENT ID: [id number] MICK ROBINS MD CC: [id number] DICTATION DATE: 03/19/20 1141 GEODETIC COMPUTATOR: 03/19/20 1327 DEP CLI 03/18/20 [id number] [place] [address]
== END | disposition home or self-care (01) ==
LOC: D.CN 03-07 13:00
PROVIDERS: ATTEND Psychiatry & Neurology Neurology
DX: G40.209 Localization-related (focal) (partial) symptomatic epilepsy and epileptic syndromes with complex partial seizures, not intractable, without status epilepticus (principal)